=== PATIENT | female | born 1985 | race American Indian/Alaskan Native ===

== ENCOUNTER 2021-09-11 18:39 | Emergency (ER) | payer BC ==
[2021-09-11 20:43] LABS: Hematocrit 47.8 % (30.3-42.9); Hemoglobin 15.4 gm/dl (10.1-14.3); Mean Corpuscular HGB Conc 32 % (30-34); Mean Corpuscular Volume 93 fl (79-97); Platelet Count 275 K/mm3 (140-440); Red Blood Count 5.16 M/mm3 (3.65-5.03); Red Cell Distribution Width 13.2 % (13.2-15.2)
[2021-09-11 20:44] LABS: Bilirubin,Urine NEG (Negative); Blood,Urine NEG (Negative); Color,Urine Amber (Yellow)
[2021-09-11 21:00] LABS: Albumin 4.6 g/dL (3.9-5); Calcium 9.3 mg/dL (8.4-10.2)
[2021-09-11 21:12] LABS: WBC,Urine < 1.0 /HPF (0.0-6.0)
[2021-09-11 21:51] LABS: Total Cells Counted 100
[2021-09-11 21:52] LABS: Anisocytosis 1+; Basophils % (Manual) 0 % (0.0-1.8); Platelet Estimate Consistent w Auto
[2021-09-12 00:13] VITALS: BP 141/82
[2021-09-12] MEDS ORDERED: ONDANSETRON 4 MG ODT TAB PO STA (00:14)
[2021-09-12] MEDS ORDERED: HYOSCYAMINE SUBL 0.125 MG TAB SL ONE (00:14)
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
== END 2021-09-12 03:00 | disposition home or self-care (01) ==
LOC: ED 18:39
DX: K52.9 Noninfective gastroenteritis and colitis, unspecified (principal)
CPT/HCPCS: 36415; 80053; 81001; 85007; 85025; 99283; J3490; Q0162